=== PATIENT | male | born 1995 | race Caucasian/White ===

== ENCOUNTER 2017-11-29 12:20 | Emergency (ER) | payer SELFPAY ==
--- NOTE | 2017-11-29 12:24 | UC ---
Laceration HPI - HPI Summary HPI Summary: Pt presents with left hand laceration sustained today at 0700 at work. He was doing something with the coffee machine and his hand slipped and sliced on a piece of metal. Thinks last tetanus was many years ago. - History Of Current Complaint Stated Complaint: HAND LACERATION Time Seen by Provider: 11/29/17 12:23 Hx Obtained From: Patient Laceration Location: Hand Mechanism Of Injury: Sharp Trauma Onset/Duration: Sudden Onset Severity: Mild Pain Intensity: 1 Pain Scale Used: 0-10 Numeric - Allergies/Home Medications Allergies/Adverse Reactions: Allergies Allergy/AdvReac Type Severity Reaction Status Date / Time No Known Allergies Allergy Verified 11/29/17 12:33 Home Medications: Home Medications NK [No Home Medications Reported] 11/29/17 [History Confirmed 11/29/17] PMH/Surg Hx/FS Hx/Imm Hx - Additional Past Medical History Additional PMH: None Previously Healthy: Yes - Surgical History Surgical History: None - Family History Known Family History: Positive: None - Social History Occupation: Employed Full-time Lives: With Family Alcohol Use: None Substance Use Type: None Smoking Status (MU): Never Smoked Tobacco Review of Systems Constitutional: Negative Skin: Other - Laceration left palm Respiratory: Negative Cardiovascular: Negative Neurovascular: Negative Neurological: Negative Psychological: Negative All Other Systems Reviewed And Are Negative: Yes Physical Exam - Summary Physical Exam Summary: GENERAL: NAD. WDWN. No pain distress. SKIN: 4mm superficial linear laceration to palmar aspect of left hand at 2nd MCP. Well approximated. No FB. NECK: Supple. Nontender. No lymphadenopathy. CHEST: No accessory muscle use. Breathing comfortably and in no distress. CV: Pulses intact. Brisk cap refill. MSK: Left hand and all fingers FROM. NEURO: Alert. CN II-XII grossly intact. PSYCH: Age appropriate behavior. Triage Information Reviewed: Yes Laceration Repair - Laceration Repair 1 Description: Linear Laceration Size After Repair: Length (cm) - 0.4 Modified For Repair: No Irrigation With Pressure Irrigation Device: Yes Closure Material: Skin Adhesive Laceration Course/Dx - Course/Dx Course Of Treatment: Wound irrigated with 100mL NS. tdap updated. Superficial lac approximated and glued with dermabond. Band-aid applied. - Differential Dx - Laceration/Wound Provider Diagnoses: 4mm superficial laceration to left hand Discharge - Sign-Out/Discharge Documenting (check all that apply): Discharge/Admit/Transfer - Discharge Plan Condition: Stable Disposition: HOME Patient Education Materials: Laceration (DC), Skin Adhesive Care (ED) Forms: *Work Release Referrals: No Primary Care Phys,NOPCP [Primary Care Provider] - Additional Instructions: If you develop a fever, shortness of breath, chest pain, new or worsening symptoms - please call your PCP or go to the ED. 1) Please keep your dressing clean, dry, and intact for the next 24 hours. 2) Tomorrow may take dressing off and apply a band-aid. Please keep covered while working until fully healed. - Billing Disposition and Condition Condition: STABLE Disposition: HOME
[2017-11-29] MEDS ORDERED: Lidocaine 2% PF * 5 ML VIAL INJ ONE (12:31)
[2017-11-29] MEDS ORDERED: Tetan/Diph/Pertus SYR(Tdap)* 0.5 ML SYR(BOOSTRIX) use SYR IM ONE (12:31)
[2017-11-29 12:33] VITALS: BP 118/65
== END 2017-11-29 12:57 | disposition home or self-care (01) ==
LOC: UCEAST 12:20
DX: S61.412A Laceration without foreign body of left hand, initial encounter (principal); W26.8XXA Contact with other sharp object(s), not elsewhere classified, initial encounter; Y93.89 Activity, other specified; Y92.511 Restaurant or cafe as the place of occurrence of the external cause; Y99.0 Civilian activity done for income or pay; Z23 Encounter for immunization
CPT/HCPCS: 12001; 90715; 99201; G0463